=== PATIENT | male | born 1960 | race Caucasian/White ===

== ENCOUNTER 2017-08-05 13:05 | Inpatient (IN) | payer OTHER ==
[2017-08-05] MEDS ORDERED: NACL 0.9% 1000 ML 1,000 ML IV ONE (13:22)
[2017-08-05 14:14] LABS: Basophils % (Auto) 0.3 % (0.0-1.8); Eosinophils # (Auto) 0.1 K/mm3 (0.0-0.4); Hemoglobin 14.2 gm/dl (11.8-15.2); Lymphocytes # (Auto) 1.8 K/mm3 (1.2-5.4); Lymphocytes % (Auto) 14.5 % (13.4-35.0); Mean Corpuscular HGB Conc 32 % (32-34); Mean Corpuscular Volume 79 fl (84-94); Monocytes # (Auto) 0.9 K/mm3 (0.0-0.8); Monocytes % (Auto) 7.2 % (0.0-7.3); Platelet Count 267 K/mm3 (140-440); Red Blood Count 5.55 M/mm3 (3.65-5.03); Red Cell Distribution Width 14.1 % (13.2-15.2)
[2017-08-05 14:26] LABS: INR 0.84 (0.87-1.13)
[2017-08-05 14:27] LABS: Partial Thromboplastin Time 25.1 Sec. (24.2-36.6)
[2017-08-05 14:30] LABS: Mean Corpuscular Hemoglobin 26 pg (28-32)
[2017-08-05 14:31] LABS: Creatine Kinase MB 2.4 ng/mL (0.0-4.0)
[2017-08-05 14:32] LABS: BUN/Creatinine Ratio 20; Blood Urea Nitrogen 14 mg/dL (9-20); Calcium 8.6 mg/dL (8.4-10.2); Hemolysis Index 8
[2017-08-05 14:34] LABS: Alanine Aminotransferase 24 units/L (7-56); Albumin 3.9 g/dL (3.9-5)
[2017-08-05 14:36] LABS: Bilirubin,Direct < 0.2 mg/dL (0-0.2)
[2017-08-05] MEDS ORDERED: MOTRIN PO ONE (14:38)
--- NOTE | 2017-08-05 15:04 | Cat Scan Report ---
FINAL REPORT EXAM: CT CERVICAL SPINE WO CON HISTORY: Syncope TECHNIQUE: A noncontrast CT of the cervical spine was performed. Coronal and sagittal reformatted images were obtained. PRIORS: None. FINDINGS: There is no evidence of acute fracture. Vertebral body heights and alignment are maintained. There is multilevel degenerative disc disease. This is most notable at C5-6 and C6-7 where disc osteophyte complexes cause moderate spinal stenosis and left neuroforaminal narrowing. IMPRESSION: Multilevel degenerative disc disease. This causes moderate spinal and left neuroforaminal stenosis at C5-6 and C6-7. No cervical spine fracture or subluxation.
--- NOTE | 2017-08-05 15:06 | Cat Scan Report ---
FINAL REPORT EXAM: CT HEAD/BRAIN WO CON HISTORY: Syncope TECHNIQUE: CT of the head was performed. No intravenous contrast was administered. PRIORS: None. FINDINGS: There is no evidence of intracranial hemorrhage. There is no edema, mass effect or midline shift. There are no abnormal extra-axial fluid collections. The ventricles are appropriate for brain volume. There is no skull fracture seen. The visualized aspects of the sinuses are clear. IMPRESSION: There is no acute intracranial abnormality identified.
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
[2017-08-05] MEDS ORDERED: BOOSTRIX IM ONE (15:17)
[2017-08-05] MEDS ORDERED: BABY ASPIRIN PO ONE (15:17)
--- NOTE | 2017-08-05 15:22 | XRay Report ---
FINAL REPORT PROCEDURE: XR CHEST 1V AP TECHNIQUE: Chest radiograph anteroposterior view. CPT 23021 HISTORY: Syncope HTN COMPARISON: No prior studies are available for comparison. FINDINGS: Heart: Normal. Mediastinum/Vessels: Normal. Lungs/Pleural space: No infiltrate, effusion, or pneumothorax. Bony thorax: No acute osseous abnormality. Life support devices: None. IMPRESSION: No radiographic evidence of acute cardiopulmonary abnormality.
[2017-08-05 19:01] VITALS: BP 113/79
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
== END 2017-08-05 20:00 | disposition left against medical advice (07) | DRG 312 ==
LOC: ED 13:05 → 4A 19:05
PROVIDERS: ADMIT Internal Medicine; ATTEND Internal Medicine
DX: R55 Syncope and collapse (principal); R09.01 Asphyxia; S00.83XA Contusion of other part of head, initial encounter; S00.31XA Abrasion of nose, initial encounter; F20.9 Schizophrenia, unspecified; R09.89 Other specified symptoms and signs involving the circulatory and respiratory systems; X58.XXXA Exposure to other specified factors, initial encounter; Y93.89 Activity, other specified; Y92.89 Other specified places as the place of occurrence of the external cause; Y99.8 Other external cause status
CPT/HCPCS: 36415; 70450; 71045; 72125; 80048; 80074; 82550; 82553; 83036; 83735; 83880; 84484; 85025; 85610; 85730; 90715; 93005; 93010; 96361; 96372; J7030